=== PATIENT | female | born 2000 ===

== ENCOUNTER 2020-02-27 16:36 | Emergency (ER) | payer BC ==
[2020-02-27 16:40] VITALS: BP 94/52
[2020-02-27 17:00] LABS: Basophils % (Auto) 0.4 % (0.0-1.8); Eosinophils % (Auto) 0.6 % (0.0-4.3); Hematocrit 32.4 % (30.3-42.9); Lymphocytes # (Auto) 1.6 K/mm3 (1.2-5.4); Lymphocytes % (Auto) 23.4 % (13.4-35.0); Mean Corpuscular HGB Conc 34 % (30-34); Mean Corpuscular Volume 97 fl (79-97); Monocytes # (Auto) 0.6 K/mm3 (0.0-0.8); Monocytes % (Auto) 9.1 % (0.0-7.3); Platelet Count 317 K/mm3 (140-440); Red Blood Count 3.35 M/mm3 (3.65-5.03); Red Cell Distribution Width 13.8 % (13.2-15.2)
== END 2020-02-27 18:10 ==
LOC: ED 16:36
DX: N93.9 Abnormal uterine and vaginal bleeding, unspecified (principal); Z53.21 Procedure and treatment not carried out due to patient leaving prior to being seen by health care provider
CPT/HCPCS: 36415; 84702; 84703; 85025; 86900; 86901

== ENCOUNTER 2020-02-27 20:47 | Emergency (ER) | payer BC ==
[2020-02-27] MEDS ORDERED: SODIUM CHLORIDE 0.9% 1000 ML 1,000 ML IV ONE (21:31)
--- NOTE | 2020-02-27 21:59 | Emergency Department Report ---
HPI - General Chief Complaint: Syncope Time Seen by Provider: 02/27/20 21:23 - HPI HPI: 19-year-old female presents to the emergency department with a complaint of vaginal bleeding and a syncopal episode. The patient was seen here earlier today and had some blood work done through triage, but she eloped from the emergency department prior to seeing a physician or getting her results. Initially she came in because she woke up having some moderate vaginal bleeding with clots seen, and the patient is not supposed to have her menstrual cycle for another 2 weeks. The patient went home and started feeling slightly dizzy. She says that she went into her apartment and ate some food for dinner. She then was on her way down the steps to go downtown when she passed out. She still continues to have some vaginal bleeding but it has decreased. At the time of my examination she is awake, alert, oriented, and just complains of some fatigue. Otherwise she denies any past medical history. Denies any tobacco use or illicit drug use. ED Past Medical Hx - Past Medical History Previous Medical History?: Yes Hx Psychiatric Treatment: Yes (Suicidal) - Surgical History Past Surgical History?: No - Social History Smoking Status: Current Every Day Smoker Substance Use Type: None ED Review of Systems ROS: Stated complaint: VAGINAL BLEEDING Other details as noted in HPI Comment: All other systems reviewed and negative Constitutional: denies: chills, fever Eyes: denies: eye pain, vision change ENT: denies: ear pain, throat pain Respiratory: denies: cough, shortness of breath Cardiovascular: syncope. denies: chest pain Gastrointestinal: denies: nausea, vomiting Genitourinary: abnormal menses. denies: dysuria, hematuria Musculoskeletal: denies: back pain, arthralgia Skin: denies: rash, lesions Neurological: denies: headache, numbness Physical Exam - Physical Exam Vital Signs: Vital Signs 02/27/20 21:03 Temperature 97.9 F Pulse Rate 101 H Respiratory 18 Rate Blood Pressure 94/58 O2 Sat by Pulse 99 Oximetry Physical Exam: GENERAL: The patient is well-developed well-nourished. HENT: Normocephalic. Atraumatic. Patient has moist mucous membranes. EYES: Extraocular motions are intact. NECK: Supple. Trachea is midline. CHEST/LUNGS: Clear to auscultation. There is no respiratory distress noted. HEART/CARDIOVASCULAR: Regular. There is no tachycardia. There is no murmur. ABDOMEN: Abdomen is soft, nontender. Patient has normal bowel sounds. SKIN: Skin is warm and dry. NEURO: The patient is awake, alert, and oriented. The patient is cooperative. The patient has no focal neurologic deficits. Normal speech. Cranial nerves II through XII grossly intact. MUSCULOSKELETAL: There is no tenderness or deformity. There is no limitation range of motion. There is no evidence of acute injury. : Deferred ED Course Vital Signs 02/27/20 21:03 Temperature 97.9 F Pulse Rate 101 H Respiratory 18 Rate Blood Pressure 94/58 O2 Sat by Pulse 99 Oximetry ED Medical Decision Making - Lab Data Result diagrams: 02/27/20 21:34 02/27/20 21:34 - EKG Data -: EKG Interpreted by Me EKG shows normal: sinus rhythm, axis, intervals, QRS complexes, ST-T waves Rate: normal - EKG Data When compared to previous EKG there are: previous EKG unavailable Interpretation: normal EKG - Medical Decision Making This patient presents to the emergency department after having a syncopal episode just prior to arrival. She was seen earlier today secondary to some abnormal vaginal bleeding. At the time of my examination the patient says it has improved but has not completely resolved. At this point she just complains of some generalized fatigue. On examination there is no focal, motor or sensory deficits and her cranial nerves are intact. An EKG was done that is normal without ST elevation [place], ischemia or dysrhythmia. Patient's labs show some mild anemia with a hemoglobin of 9.6. Otherwise the patient has a normal chemistry and appears to have normal thyroid function. The patient had some blood work done earlier in the day that showed her not to be . Patient had orthostatic vital signs completed. While the patient did not have any hypotension, the patient did become tachycardic upon standing. She was given 1.5 L of IV fluid resuscitation. Upon reevaluation she says she is feeling greatly improved. She will be discharged home to follow-up with primary care and [facility]. She will return to the ER with any further episodes of passing out, worsening of her vaginal bleeding, worsening of her symptoms, or any acute distress. Critical Care Time: No Critical care attestation.: If time is entered above; I have spent that time in minutes in the direct care of this critically ill patient, excluding procedure time. ED Disposition Clinical Impression: Dysfunctional uterine bleeding, Dehydration Syncope Qualifiers: Syncope type: unspecified Qualified Code(s): R55 - Syncope and collapse Disposition: TO HOME OR SELFCARE Is pt being admited?: No Condition: Stable Instructions: Dysfunctional Uterine Bleeding (ED), Dehydration (ED), Syncope (ED) Additional Instructions: Please follow-up with a [facility] regarding the abnormal vaginal bleeding. However, you should return to the emergency department immediately with any worsening of your symptoms, especially if you are going through more than 1 pad per hour. You should also return with any further episodes of passing out, or with any acute distress. Increase your oral rehydration. I am giving you a referral for multiple local [facility] groups. Referrals: PRIMARY CARE [Primary Care Provider] - 3-5 Days [facility] [Provider Group] - 3-5 Days [facility], [facility] [Provider Group] - 3-5 Days [facility] [Provider Group] - 3-5 Days Time of Disposition: 00:44
[2020-02-27 22:01] LABS: Basophils % (Auto) 0.3 % (0.0-1.8); Eosinophils % (Auto) 0.7 % (0.0-4.3); Hematocrit 27.3 % (30.3-42.9); Hemoglobin 9.4 gm/dl (10.1-14.3); Lymphocytes # (Auto) 1.6 K/mm3 (1.2-5.4); Lymphocytes % (Auto) 21.1 % (13.4-35.0); Mean Corpuscular HGB Conc 34 % (30-34); Mean Corpuscular Volume 96 fl (79-97); Monocytes # (Auto) 0.6 K/mm3 (0.0-0.8); Monocytes % (Auto) 7.7 % (0.0-7.3); Platelet Count 284 K/mm3 (140-440); Red Blood Count 2.85 M/mm3 (3.65-5.03); Red Cell Distribution Width 13.4 % (13.2-15.2)
[2020-02-27 22:14] LABS: BUN/Creatinine Ratio 21; Blood Urea Nitrogen 15 mg/dL (7-17); Calcium 9.1 mg/dL (8.4-10.2); Hemolysis Index 3
[2020-02-27] MEDS ORDERED: SODIUM CHLORIDE 0.9% 500 ML 500 ML IV ONE (23:38)
[2020-02-28 00:57] VITALS: BP 97/55
== END 2020-02-28 01:07 | disposition home or self-care (01) ==
LOC: ED 20:47
DX: N93.8 Other specified abnormal uterine and vaginal bleeding (principal); E86.0 Dehydration; R55 Syncope and collapse; F17.200 Nicotine dependence, unspecified, uncomplicated
CPT/HCPCS: 36415; 80048; 84443; 85025; 93005; 96360; 99284; J7030; J7040